=== PATIENT | female | born 1985 | race Caucasian/White ===

== ENCOUNTER 2019-10-16 09:37 | Emergency (ER) | payer BC ==
[~2019-10-16] VITALS: Ht 157.5 cm; Wt 140.0 kg
[~2019-10-16 09:37] MED LIST: BENTYL 10MG10 MG/CAP; CYMBALTA 30MG30 MG PO; EFFEXOR-XR150 MG PO; ELIQUIS 5MG PO; GEODON80 MG PO; INDERAL 20MG20 MG PO; KLONOPIN 1MG1 MG PO; LASIX 40MG TABL40 MG PO; LORTAB 5/500 501 TAB PO; LYRICA 75MG CAP75 MG PO; MICARDIS HCT 121 TAB PO; NORCO 325 MG-51 TAB PO; PAXIL 20MG20 MG PO; TRILEPTAL 300M300 MG PO; ZOFRAN 4MG T4 MG/TAB PO
[2019-10-16 09:46] VITALS: TEMP 97.7
[2019-10-16 10:53] LABS: COLLECTION METHOD CLEAN CATCH
[2019-10-16 10:59] LABS: BASO % 0.2 % (0.0-2.0); EOS % 0.1 % (0-4.0); GRAN # 8.7 (1.4-6.5); GRAN % 79.2 % (42.2-75.2); HEMOGLOBIN 11.5 g/dl (12.5-16.0); LYMPH # 1.4 (1.2-3.4); LYMPH % 12.5 % (20.0-51.0); MEAN CELL VOLUME 86 fl (80.0-100.0); MEAN CORPUSCULAR HEMOGLOBIN 27 pg (27.0-31.0); MEAN CORPUSCULAR HGB CONC 32 g/dl (33.0-37.0); MEAN PLATELET VOLUME 12.1 fl (7.4-10.4); MONO # 0.8 (0.1-0.6); MONO % 7.5 % (1.7-9.3); PLATELET COUNT 233 K/mm3 (130-400); RED BLOOD COUNT 4.22 M/mm3 (4.10-5.30); REDCELL DISTRIBUTION WIDTH-CV 13.6 % (11.5-14.5)
[2019-10-16 11:02] LABS: MUCOUS Present /lpf; PH 6 (5-8); URINE APPEARANCE Clear; URINE BACTERIA Rare /hpf; URINE BILIRUBIN Negative (NEGATIVE); URINE BLOOD Negative (NEGATIVE); URINE COLOR Yellow; URINE GLUCOSE Negative (NEGATIVE); URINE KETONE Negative (NEGATIVE); URINE LEUKOCYTE ESTERASE Negative (NEGATIVE); URINE NITRATE Negative (NEGATIVE); URINE PROTEIN(semi-quant) Negative (NEGATIVE); URINE RBC 0-2 /hpf; URINE UROBILINOGEN Negative (NEGATIVE)
[2019-10-16 11:05] LABS: HEMATOCRIT 36.1 % (37.0-47.0)
[2019-10-16 11:13] LABS: ALBUMIN 3.7 gm/dL (3.5-5.0); BILIRUBIN,TOTAL 0.3 mg/dL (0.0-1.0); C-REACTIVE PROTEIN 0.8 mg/dL (0.0-0.9); CALCIUM 8.9 mg/dL (8.4-10.2); CREATININE, serum 0.61 (0.52-1.25); POTASSIUM 3.8 mmol/L (3.4-5.0); TOTAL PROTEIN 6.7 gm/dL (6.4-8.2)
[2019-10-16] MEDS ORDERED: CEPHALEXIN500 M1 PO (13:30)
[2019-10-16] MEDS ORDERED: ANTIVERT 25MG25 MG PO (15:04)
[2019-10-16 17:07] VITALS: BP 140/100; PULSE 70
== END 2019-10-16 17:11 | disposition home or self-care (01) ==
LOC: COL.ER 09:37
PROVIDERS: Physician Assistant
DX: R60.0 Localized edema (principal); N39.0 Urinary tract infection, site not specified; R06.02 Shortness of breath; J45.909 Unspecified asthma, uncomplicated; I10 Essential (primary) hypertension; F31.9 Bipolar disorder, unspecified; F17.210 Nicotine dependence, cigarettes, uncomplicated; Z88.0 Allergy status to penicillin; Z86.718 Personal history of other venous thrombosis and embolism; Z79.01 Long term (current) use of anticoagulants
CPT/HCPCS: J1940; J2405

== ENCOUNTER 2019-11-20 08:23 | Day surgery (SDC) | payer BC ==
[~2019-11-20] VITALS: Ht 157.5 cm; Wt 135.5 kg
[2019-11-20] VITALS (9 sets, daily range): BP systolic 121–139; BP diastolic 60–94; PULSE 78–94; TEMP 98.1
[~2019-11-20 08:23] MED LIST changes: +ANTIVERT 25MG25 MG PO; +CEPHALEXIN500 M1 PO
[2019-11-20] MEDS ORDERED: THERA-D 40004000 IU PO (09:00)
[2019-11-20] MEDS ORDERED: GLUCOPHAGE500 MG/TAB PO (09:01)
[2019-11-20] MEDS ORDERED: PERCOCET 325 MG1 TA3 PO (09:03)
[2019-11-20 09:26] LABS: HEMATOCRIT 38.1 % (37.0-47.0); HEMOGLOBIN 12.1 g/dl (12.5-16.0); MEAN CELL VOLUME 84 fl (80.0-100.0); MEAN CORPUSCULAR HEMOGLOBIN 27 pg (27.0-31.0); MEAN CORPUSCULAR HGB CONC 32 g/dl (33.0-37.0); MEAN PLATELET VOLUME 11.2 fl (7.4-10.4); PLATELET COUNT 271 K/mm3 (130-400); RED BLOOD COUNT 4.53 M/mm3 (4.10-5.30); REDCELL DISTRIBUTION WIDTH-CV 13.5 % (11.5-14.5)
[2019-11-20 09:34] LABS: CALCIUM 8.7 mg/dL (8.4-10.2); CREATININE, serum 0.69 (0.52-1.25); POTASSIUM 4.4 mmol/L (3.4-5.0); PROTHROMBIN TIME 11.7 SECONDS (9.7-12.8)
--- NOTE | 2019-11-20 10:06 | NUR ---
SEE MERGE DOCUMENTATION FOR MEDICATION ADMINISTRATION AND INTRA/POST PROCEDURE SEDATION ASSESSMENTS.
--- NOTE | 2019-11-20 10:50 | NUR ---
Report from Juli DAMON. Pt up to bathroom with steady gait. Right IJ dressing CD&I and soft to palpation. VS at baseline.
--- NOTE | 2019-11-20 12:50 | NUR ---
INt discontinued intact. Discharge instructions given. transferred to private car by maria g
== END 2019-11-20 13:00 | disposition home or self-care (01) ==
LOC: COL.CAR 08:23
PROVIDERS: Internal Medicine Cardiovascular Disease
DX: I27.20 Pulmonary hypertension, unspecified (principal); I10 Essential (primary) hypertension; I20.8 Other forms of angina pectoris; Z79.01 Long term (current) use of anticoagulants; Z79.84 Long term (current) use of oral hypoglycemic drugs; Z86.718 Personal history of other venous thrombosis and embolism; Z88.0 Allergy status to penicillin; Z88.8 Allergy status to other drugs, medicaments and biological substances; Z88.6 Allergy status to analgesic agent
CPT/HCPCS: C1894; J1644; J2250; J2405; J3010

== ENCOUNTER → 2020-01-21 | Outpatient (CLI) | payer BC ==
[~2020-01-21] MED LIST changes: +GLUCOPHAGE500 MG/TAB PO; +PERCOCET 325 MG1 TA3 PO; +THERA-D 40004000 IU PO
== END ==
LOC: COL.RAD 12:03
DX: I27.20 Pulmonary hypertension, unspecified (principal)
CPT/HCPCS: A9540; A9567

== ENCOUNTER 2020-02-13 09:58 | Emergency (ER) | payer BC ==
[~2020-02-13] VITALS: Ht 157.5 cm; Wt 130.5 kg
[2020-02-13 10:03] VITALS: TEMP 98.6
[2020-02-13] MEDS ORDERED: MINIPRESS2 MG (10:16)
[2020-02-13] MEDS ORDERED: NURTEC ODT75 MG PO (10:16)
[2020-02-13] MEDS ORDERED: AMBIEN 10MG10 MG PO (10:17)
[2020-02-13] MEDS ORDERED: COZAAR 25MG25 MG/TAB PO (10:22)
[2020-02-13 11:14] LABS: BASO % 0.4 % (0.0-2.0); EOS # 0.1 (0.0-0.7); EOS % 0.6 % (0-4.0); GRAN # 5.9 (1.4-6.5); GRAN % 71.5 % (42.2-75.2); HEMATOCRIT 39.7 % (37.0-47.0); HEMOGLOBIN 12.5 g/dl (12.5-16.0); LYMPH # 1.7 (1.2-3.4); LYMPH % 20.8 % (20.0-51.0); MEAN CELL VOLUME 81 fl (80.0-100.0); MEAN CORPUSCULAR HEMOGLOBIN 26 pg (27.0-31.0); MEAN CORPUSCULAR HGB CONC 32 g/dl (33.0-37.0); MEAN PLATELET VOLUME 12.3 fl (7.4-10.4); MONO # 0.5 (0.1-0.6); MONO % 6.5 % (1.7-9.3); PLATELET COUNT 289 K/mm3 (130-400); RED BLOOD COUNT 4.91 M/mm3 (4.10-5.30)
[2020-02-13 11:26] LABS: ALBUMIN 4.2 gm/dL (3.5-5.0); BILIRUBIN,TOTAL 0.5 mg/dL (0.0-1.0); C-REACTIVE PROTEIN 1.9 mg/dL (0.0-0.9); CREATININE, serum 0.71 (0.52-1.25); POTASSIUM 3.2 mmol/L (3.4-5.0); TOTAL PROTEIN 7.2 gm/dL (6.4-8.2)
[2020-02-13 12:40] LABS: COLLECTION METHOD CLEAN CATCH
[2020-02-13 12:45] LABS: INR 1.1 (0.8-3.0); PROTHROMBIN TIME 12.4 SECONDS (9.7-12.8)
[2020-02-13 13:04] LABS: ACETAMINOPHEN < 10 ug/mL (10-30); ALCOHOL(ethanol),MEDICAL < 10 mg/dL; SALICYLATE < 1.0 mg/dL
[2020-02-13 13:21] LABS: PH 9 (5-8); URINE APPEARANCE Hazy; URINE BACTERIA Rare /hpf; URINE BILIRUBIN Negative (NEGATIVE); URINE BLOOD Negative (NEGATIVE); URINE COLOR Yellow; URINE GLUCOSE Negative (NEGATIVE); URINE KETONE Trace (NEGATIVE); URINE LEUKOCYTE ESTERASE Negative (NEGATIVE); URINE NITRATE Positive (NEGATIVE); URINE PROTEIN(semi-quant) Negative (NEGATIVE); URINE RBC 0-2 /hpf; URINE UROBILINOGEN Negative (NEGATIVE)
[2020-02-13 13:26] LABS: TRICYCLIC ANTIDEPRESS URINE NEGATIVE
[2020-02-13 17:20] VITALS: BP 136/83; PULSE 84
== END 2020-02-13 17:30 | disposition home or self-care (01) ==
LOC: COL.ER 09:58
PROVIDERS: Emergency Medicine
DX: R42 Dizziness and giddiness (principal); I10 Essential (primary) hypertension; R53.83 Other fatigue; Z88.0 Allergy status to penicillin; Z88.6 Allergy status to analgesic agent; Z79.01 Long term (current) use of anticoagulants; Z79.84 Long term (current) use of oral hypoglycemic drugs
CPT/HCPCS: J1100; J1630; J2060; J7030

== ENCOUNTER 2020-02-15 10:16 | Emergency (ER) | payer BC ==
[~2020-02-15] VITALS: Ht 157.5 cm; Wt 130.5 kg
[~2020-02-15 10:16] MED LIST changes: +AMBIEN 10MG10 MG PO; +COZAAR 25MG25 MG/TAB PO; +MINIPRESS2 MG; +NURTEC ODT75 MG PO
[2020-02-15 10:31] LABS: COLLECTION METHOD CLEAN CATCH
[2020-02-15 10:45] LABS: MUCOUS Present /lpf; PH 5 (5-8); URINE APPEARANCE Hazy; URINE BACTERIA Rare /hpf; URINE BILIRUBIN Negative (NEGATIVE); URINE BLOOD 1+ (NEGATIVE); URINE COLOR Straw; URINE GLUCOSE Negative (NEGATIVE); URINE KETONE Negative (NEGATIVE); URINE LEUKOCYTE ESTERASE 2+ (NEGATIVE); URINE NITRATE Negative (NEGATIVE); URINE PROTEIN(semi-quant) Negative (NEGATIVE); URINE UROBILINOGEN Negative (NEGATIVE)
[2020-02-15] MEDS ORDERED: CEPHALEXIN500 M1 PO (11:11)
[2020-02-15] MEDS ORDERED: PYRIDIUM200 M1 PO (11:11)
[2020-02-15 11:17] VITALS: BP 120/88; PULSE 89; TEMP 97.6
[2020-02-16] MEDS ORDERED: OMNICEF 300MG300 MG PO (20:55)
== END 2020-02-15 11:19 | disposition home or self-care (01) ==
LOC: COL.ER 10:16
PROVIDERS: Physician Assistant
DX: N39.0 Urinary tract infection, site not specified (principal); I10 Essential (primary) hypertension; Z88.0 Allergy status to penicillin; Z88.6 Allergy status to analgesic agent; Z79.01 Long term (current) use of anticoagulants; Z79.84 Long term (current) use of oral hypoglycemic drugs

== ENCOUNTER 2020-02-16 18:37 | Emergency (ER) | payer BC ==
[~2020-02-16] VITALS: Ht 157.5 cm; Wt 130.5 kg
[~2020-02-16 18:37] MED LIST changes: +PYRIDIUM200 M1 PO
[2020-02-16 18:51] VITALS: TEMP 98.1
[2020-02-16 19:25] LABS: BASO # 0.1 (0.0-0.2); BASO % 0.5 % (0.0-2.0); EOS # 0.1 (0.0-0.7); GRAN # 8.3 (1.4-6.5); GRAN % 70.4 % (42.2-75.2); HEMATOCRIT 37.8 % (37.0-47.0); LYMPH # 2.2 (1.2-3.4); MEAN CELL VOLUME 81 fl (80.0-100.0); MEAN CORPUSCULAR HEMOGLOBIN 26 pg (27.0-31.0); MEAN CORPUSCULAR HGB CONC 32 g/dl (33.0-37.0); MEAN PLATELET VOLUME 12.2 fl (7.4-10.4); MONO % 8.8 % (1.7-9.3); PLATELET COUNT 317 K/mm3 (130-400); RED BLOOD COUNT 4.67 M/mm3 (4.10-5.30); REDCELL DISTRIBUTION WIDTH-CV 15.2 % (11.5-14.5)
[2020-02-16 19:31] LABS: COLLECTION METHOD CLEAN CATCH
[2020-02-16 19:36] LABS: ALANINE AMINOTRANSFERASE 21 U/L (4-34); ALBUMIN 4.1 gm/dL (3.5-5.0); ALKALINE PHOSPHATASE 88 U/L (50-136); ANION GAP 9 mmol/L (7-16); AST,SGOT 21 U/L (15-37); BILIRUBIN,TOTAL 0.4 mg/dL (0.0-1.0); BLOOD UREA NITROGEN 17 mg/dL (7-17); C-REACTIVE PROTEIN 1.1 mg/dL (0.0-0.9); CALCIUM 8.7 mg/dL (8.4-10.2); CARBON DIOXIDE 29 mmol/L (22-30); CHLORIDE 97 mmol/L (98-107); GLUCOSE 98 mg/dL (74-106); POTASSIUM 3.6 mmol/L (3.4-5.0); SODIUM 135 mmol/L (137-145)
[2020-02-16 19:47] LABS: TROPONIN-I < 0.012 ng/mL (0.000-0.035)
[2020-02-16 19:49] LABS: MUCOUS Present /lpf; PH 5 (5-8); SQUAMOUS EPITHELIAL >50 /hpf; URINE APPEARANCE Turbid; URINE BACTERIA Occasional /hpf; URINE BILIRUBIN Negative (NEGATIVE); URINE BLOOD Negative (NEGATIVE); URINE COLOR Amber; URINE GLUCOSE Negative (NEGATIVE); URINE KETONE Negative (NEGATIVE); URINE LEUKOCYTE ESTERASE 2+ (NEGATIVE); URINE NITRATE Negative (NEGATIVE); URINE PROTEIN(semi-quant) 1+ (NEGATIVE)
[2020-02-16] MEDS ORDERED: OMNICEF 300MG300 MG PO (20:55)
[2020-02-16 21:05] VITALS: BP 121/61; PULSE 81
== END 2020-02-16 21:16 | disposition home or self-care (01) ==
LOC: COL.ER 18:37
PROVIDERS: Emergency Medicine
DX: R06.02 Shortness of breath (principal); N39.0 Urinary tract infection, site not specified; R51.9 Headache, unspecified; R07.89 Other chest pain; Z20.828 Contact with and (suspected) exposure to other viral communicable diseases; Z86.718 Personal history of other venous thrombosis and embolism; Z79.01 Long term (current) use of anticoagulants; Z88.0 Allergy status to penicillin; Z79.84 Long term (current) use of oral hypoglycemic drugs
CPT/HCPCS: J0696; J7030

== ENCOUNTER 2020-05-12 19:01 | Emergency (ER) | payer BC ==
[~2020-05-12] VITALS: Ht 157.5 cm; Wt 125.5 kg
[~2020-05-12 19:01] MED LIST changes: +OMNICEF 300MG300 MG PO
[2020-05-12 19:34] LABS: COLLECTION METHOD CLEAN CATCH
[2020-05-12 19:42] LABS: MUCOUS Present /lpf; PH 6 (5-8); URINE APPEARANCE Hazy; URINE BACTERIA Rare /hpf; URINE BILIRUBIN Negative (NEGATIVE); URINE BLOOD Negative (NEGATIVE); URINE COLOR Yellow; URINE GLUCOSE Negative (NEGATIVE); URINE KETONE 1+ (NEGATIVE); URINE LEUKOCYTE ESTERASE Negative (NEGATIVE); URINE NITRATE Negative (NEGATIVE); URINE PROTEIN(semi-quant) Negative (NEGATIVE); URINE RBC 0-2 /hpf; URINE UROBILINOGEN Negative (NEGATIVE)
[2020-05-12 19:55] LABS: TRICYCLIC ANTIDEPRESS URINE POSITIVE
[2020-05-12 21:11] LABS: BASO % 0.2 % (0.0-2.0); GRAN # 7.3 (1.4-6.5); HEMATOCRIT 38.3 % (37.0-47.0); LYMPH # 0.6 (1.2-3.4); MEAN CELL VOLUME 81 fl (80.0-100.0); MEAN CORPUSCULAR HEMOGLOBIN 25 pg (27.0-31.0); MEAN CORPUSCULAR HGB CONC 31 g/dl (33.0-37.0); MEAN PLATELET VOLUME 12.2 fl (7.4-10.4); MONO # 0.2 (0.1-0.6); MONO % 2.8 % (1.7-9.3); PLATELET COUNT 297 K/mm3 (130-400); RED BLOOD COUNT 4.76 M/mm3 (4.10-5.30); REDCELL DISTRIBUTION WIDTH-CV 14.2 % (11.5-14.5)
[2020-05-12 21:25] LABS: ACETAMINOPHEN < 10 ug/mL (10-30); ALANINE AMINOTRANSFERASE 19 U/L (4-34); ALBUMIN 4.4 gm/dL (3.5-5.0); ALCOHOL(ethanol),MEDICAL < 10 mg/dL; ALKALINE PHOSPHATASE 121 U/L (50-136); ANION GAP 11 mmol/L (7-16); AST,SGOT 24 U/L (15-37); BILIRUBIN,TOTAL 0.4 mg/dL (0.0-1.0); BLOOD UREA NITROGEN 5 mg/dL (7-17); CALCIUM 9.3 mg/dL (8.4-10.2); CARBON DIOXIDE 26 mmol/L (22-30); CHLORIDE 104 mmol/L (98-107); CREATININE, serum 0.72 (0.52-1.25); GLUCOSE 138 mg/dL (74-106); POTASSIUM 3.9 mmol/L (3.4-5.0); SALICYLATE < 1.0 mg/dL; SODIUM 141 mmol/L (137-145); TOTAL PROTEIN 7.6 gm/dL (6.4-8.2)
[2020-05-12 21:32] LABS: INR 1.1 (0.8-3.0); PROTHROMBIN TIME 12.3 SECONDS (9.7-12.8)
[2020-05-13 07:22] VITALS: TEMP 97.4
[2020-05-13] MEDS ORDERED: SEROQUEL XR300 MG PO (09:30)
[2020-05-13] MEDS ORDERED: VALIUM 10MG10 MG/TAB PO (09:31)
[2020-05-13] MEDS ORDERED: ZANAFLEX 4MG TAB4 MG PO (09:32)
[2020-05-13 12:45] VITALS: BP 129/48; PULSE 132
== END 2020-05-13 13:15 ==
LOC: COL.ER 19:01
PROVIDERS: Nurse Practitioner
DX: F32.9 Major depressive disorder, single episode, unspecified (principal); F41.9 Anxiety disorder, unspecified; F17.200 Nicotine dependence, unspecified, uncomplicated; Z20.822 Contact with and (suspected) exposure to COVID-19; Z98.84 Bariatric surgery status; Z90.49 Acquired absence of other specified parts of digestive tract; Z32.02 Encounter for pregnancy test, result negative; Z88.0 Allergy status to penicillin; Z88.6 Allergy status to analgesic agent; Z79.01 Long term (current) use of anticoagulants; Z79.84 Long term (current) use of oral hypoglycemic drugs
CPT/HCPCS: J1200; J1885; J2765

== ENCOUNTER 2020-09-28 12:25 | Observation (INO) | payer OTHER ==
[~2020-09-28 12:25] MED LIST changes: +SEROQUEL XR300 MG PO; +VALIUM 10MG10 MG/TAB PO; +ZANAFLEX 4MG TAB4 MG PO
[2020-09-28 15:21] VITALS: BP 143/62; PULSE 101; TEMP 98.4
[2020-09-28] MEDS ORDERED: COZAAR 50MG50 MG/TAB PO (16:47)
[2020-09-28] MEDS ORDERED: HALDOL 2MG T2 MG/TAB PO (16:51)
[2020-09-28 20:36] VITALS: BP 141/74; PULSE 105; TEMP 97.9
[2020-09-28] MEDS ORDERED: AMBIEN 10MG10 MG PO (21:13)
--- NOTE | 2020-09-28 22:38 | NUR ---
Upon shift start, patient sitting up in bed. Patient feeling anxious and c/o SOB. Breathing tachypnic and slightly labored. SPO2 94-96% on RA. Started oxygen 2L via NC. Called RT for breathing treatment. SPO2 99% on 2L via NC. After breathing treatment, patient reports feeling much better. All scheduled meds given per JUN. PRN Ambien, diazepam and Tizanidine given per patient request. Call light within reach. Will continue to monitor.
[2020-09-28 23:42] VITALS: BP 100/64; PULSE 88; TEMP 98
--- NOTE | 2020-09-29 04:55 | NUR ---
Patient used call light to call the nurse around 04:20 am. Upon enter the room, noticed patient was laying in bed almost flat. Patient reports having SOB and wheezing. HOB elevated and ssisted patient to sit up straight in bed. Patient currently on 2L via NC. SPO2 99% on 2L via NC at this time. Breathing was slightly labored. Expiratory wheezing noted. BUE and BLE +2 pitting edema noted. Called RT and get breathing TX. Called TRI Jose and updated. TRI Jose came to assess the patient. Order recieved to give Lasix IV one time dose. Patient reports feeling much better after breathing TX. SPO2 100% on 2L via NC. Call light within reach. Will continue to monitor.
[2020-09-29 05:07] VITALS: BP 120/59; PULSE 93; TEMP 97.4
[2020-09-29 06:08] LABS: BASO % 0.7 % (0.0-2.0); EOS # 0.1 (0.0-0.7); GRAN # 3.3 (1.4-6.5); GRAN % 53.2 % (42.2-75.2); LYMPH # 2.1 (1.2-3.4); LYMPH % 33.8 % (20.0-51.0); MEAN CELL VOLUME 77 fl (80.0-100.0); MEAN CORPUSCULAR HGB CONC 31 g/dl (33.0-37.0); MEAN PLATELET VOLUME 10.9 fl (7.4-10.4); MONO # 0.6 (0.1-0.6); MONO % 10.1 % (1.7-9.3); PLATELET COUNT 293 K/mm3 (130-400); RED BLOOD COUNT 4.19 M/mm3 (4.10-5.30); REDCELL DISTRIBUTION WIDTH-CV 16.9 % (11.5-14.5)
[2020-09-29 06:15] LABS: HEMATOCRIT 32.1 % (37.0-47.0); HEMOGLOBIN 9.8 g/dl (12.5-16.0); MEAN CORPUSCULAR HEMOGLOBIN 23 pg (27.0-31.0)
[2020-09-29 06:21] LABS: ANION GAP 10 mmol/L (7-16); BLOOD UREA NITROGEN 10 mg/dL (7-17); CALCIUM 8.2 mg/dL (8.4-10.2); CARBON DIOXIDE 27 mmol/L (22-30); CHLORIDE 103 mmol/L (98-107); CREATININE, serum 0.81 (0.52-1.25); GLUCOSE 102 mg/dL (74-106); SODIUM 139 mmol/L (137-145)
[2020-09-29 06:32] LABS: TROPONIN-I < 0.012 ng/mL (0.000-0.035)
[2020-09-29 06:40] LABS: MAGNESIUM 1.6 mg/dL (1.6-2.3)
[2020-09-29 07:30] VITALS: BP 112/62; PULSE 89; TEMP 98
--- NOTE | 2020-09-29 08:52 | NUR ---
Pt awake and alert upon entry to room, sitting in the recliner, no C/O pain at this time. +2 edema BLE. Shift assessments complete, left Pt call light in reach, bed in lowest position.
--- NOTE | 2020-09-29 10:02 | NUR ---
Digital Campaign Manager attended clinical rounds with the team and patient to discharge home today. SW met with patient to discuss discharge plan. Patient lives in [place] with her 11 year old daughter, Marium. Patient reports that her mother, Vicki (ph#[phone]) is currently watching Marium. 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 Patient sees Jennifer Naylor PA-C for primary care and obtains medications from [facility]. Patient uses home oxygen through [facility] and is independent with ADLS. Patient does not have Advance Directives and is not interested in completing DPOA-HC at this time. Discharge Plan: Home
[2020-09-29 11:06] VITALS: BP 124/70; PULSE 94; TEMP 98.1
--- NOTE | 2020-09-29 11:45 | NUR ---
Pt discharged to home, discussed discharge packet with Pt. Pt escorted to entrance by PCT, Pt left with family via private transportation.
--- NOTE | 2020-09-29 11:51 | NUR ---
Pt discharged to home, discussed discharge packet with Pt. Pt escorted to entrance by PCT, Pt left with family via private transportation.
== END 2020-09-29 11:30 | disposition home or self-care (01) ==
LOC: MEDICAL 12:25
PROVIDERS: ADMIT Internal Medicine
DX: R07.89 Other chest pain (principal); R06.00 Dyspnea, unspecified; I27.20 Pulmonary hypertension, unspecified; G43.909 Migraine, unspecified, not intractable, without status migrainosus; R06.89 Other abnormalities of breathing; M32.9 Systemic lupus erythematosus, unspecified; I10 Essential (primary) hypertension; E03.9 Hypothyroidism, unspecified; M79.7 Fibromyalgia; E28.2 Polycystic ovarian syndrome; F31.9 Bipolar disorder, unspecified; F41.9 Anxiety disorder, unspecified; F17.290 Nicotine dependence, other tobacco product, uncomplicated; Z86.718 Personal history of other venous thrombosis and embolism; Z90.49 Acquired absence of other specified parts of digestive tract; Z79.899 Other long term (current) drug therapy; Z79.84 Long term (current) use of oral hypoglycemic drugs; Z98.84 Bariatric surgery status
CPT/HCPCS: G0378; J1940

== ENCOUNTER 2020-10-29 09:18 | Emergency (ER) | payer OTHER ==
[~2020-10-29] VITALS: Ht 154.9 cm; Wt 127.3 kg
[~2020-10-29 09:18] MED LIST changes: +COZAAR 50MG50 MG/TAB PO; +HALDOL 2MG T2 MG/TAB PO
[2020-10-29 10:07] VITALS: TEMP 97.9
[2020-10-29 11:05] LABS: COLLECTION METHOD CLEAN CATCH
[2020-10-29 11:21] LABS: MUCOUS Present /lpf; PH 5 (5-8); URINE APPEARANCE Hazy; URINE BACTERIA Rare /hpf; URINE BILIRUBIN Negative (NEGATIVE); URINE BLOOD Negative (NEGATIVE); URINE COLOR Yellow; URINE GLUCOSE Negative (NEGATIVE); URINE KETONE Negative (NEGATIVE); URINE LEUKOCYTE ESTERASE Negative (NEGATIVE); URINE NITRATE Negative (NEGATIVE); URINE PROTEIN(semi-quant) Negative (NEGATIVE); URINE RBC 0-2 /hpf; URINE UROBILINOGEN Negative (NEGATIVE)
[2020-10-29] MEDS ORDERED: BUSPAR5 MG PO (11:30)
[2020-10-29] MEDS ORDERED: XARELTO20 MG PO (11:31)
[2020-10-29 11:45] LABS: ALANINE AMINOTRANSFERASE 53 U/L (4-34); ALKALINE PHOSPHATASE 159 U/L (50-136); ANION GAP 7 mmol/L (7-16); AST,SGOT 31 U/L (15-37); BILIRUBIN,TOTAL 0.2 mg/dL (0.0-1.0); BLOOD UREA NITROGEN 12 mg/dL (7-17); CALCIUM 9.1 mg/dL (8.4-10.2); CARBON DIOXIDE 27 mmol/L (22-30); CHLORIDE 107 mmol/L (98-107); CREATININE, serum 0.87 (0.52-1.25); GLUCOSE 100 mg/dL (74-106); POTASSIUM 4.4 mmol/L (3.4-5.0); SODIUM 140 mmol/L (137-145); TOTAL PROTEIN 7.1 gm/dL (6.4-8.2)
[2020-10-29 11:56] LABS: TROPONIN-I < 0.012 ng/mL (0.000-0.035)
[2020-10-29 12:06] LABS: BASO # 0.1 (0.0-0.2); BASO % 0.5 % (0.0-2.0); EOS # 0.1 (0.0-0.7); EOS % 0.9 % (0-4.0); GRAN # 6.8 (1.4-6.5); GRAN % 68.4 % (42.2-75.2); LYMPH % 20.5 % (20.0-51.0); MEAN CELL VOLUME 77 fl (80.0-100.0); MEAN CORPUSCULAR HGB CONC 30 g/dl (33.0-37.0); MEAN PLATELET VOLUME 11.9 fl (7.4-10.4); MONO # 0.9 (0.1-0.6); MONO % 9.4 % (1.7-9.3); PLATELET COUNT 371 K/mm3 (130-400); RED BLOOD COUNT 4.25 M/mm3 (4.10-5.30); REDCELL DISTRIBUTION WIDTH-CV 16.3 % (11.5-14.5)
[2020-10-29 12:08] LABS: HEMATOCRIT 32.7 % (37.0-47.0); HEMOGLOBIN 9.9 g/dl (12.5-16.0); MEAN CORPUSCULAR HEMOGLOBIN 23 pg (27.0-31.0)
[2020-10-29 12:40] VITALS: BP 105/55; PULSE 55
== END 2020-10-29 12:42 | disposition home or self-care (01) ==
LOC: COL.ER 09:18
PROVIDERS: Physician Assistant
DX: M32.9 Systemic lupus erythematosus, unspecified (principal); R06.02 Shortness of breath; F31.9 Bipolar disorder, unspecified; I11.0 Hypertensive heart disease with heart failure; I50.9 Heart failure, unspecified; Z86.718 Personal history of other venous thrombosis and embolism; Z79.899 Other long term (current) drug therapy; Z79.01 Long term (current) use of anticoagulants

== ENCOUNTER 2021-03-16 13:53 | Emergency (ER) | payer OTHER ==
[~2021-03-16] VITALS: Ht 154.9 cm; Wt 135.9 kg
[~2021-03-16 13:53] MED LIST changes: +BUSPAR5 MG PO; +XARELTO20 MG PO
[2021-03-16 14:16] VITALS: TEMP 98.3
[2021-03-16 16:15] LABS: BASO # 0.1 K/mm3 (0.0-0.2); BASO % 0.5 % (0.0-2.0); EOS # 0.2 K/mm3 (0.0-0.7); EOS % 1.5 % (0-4.0); GRAN # 7.7 K/mm3 (1.4-6.5); HEMATOCRIT 37.3 % (37.0-47.0); HEMOGLOBIN 12.1 g/dl (12.5-16.0); LYMPH # 1.9 K/mm3 (1.2-3.4); LYMPH % 18.3 % (20.0-51.0); MEAN CELL VOLUME 85 fl (80.0-100.0); MEAN CORPUSCULAR HEMOGLOBIN 28 pg (27.0-31.0); MEAN CORPUSCULAR HGB CONC 32 g/dl (33.0-37.0); MEAN PLATELET VOLUME 10.8 fl (7.4-10.4); MONO # 0.7 K/mm3 (0.1-0.6); MONO % 6.3 % (1.7-9.3); PLATELET COUNT 312 K/mm3 (130-400); RED BLOOD COUNT 4.37 M/mm3 (4.10-5.30); REDCELL DISTRIBUTION WIDTH-CV 14.6 % (11.5-14.5)
[2021-03-16 16:33] LABS: COLLECTION METHOD CLEAN CATCH
[2021-03-16 16:34] LABS: ALBUMIN 3.7 gm/dL (3.5-5.0); BILIRUBIN,TOTAL 0.2 mg/dL (0.2-1.2); C-REACTIVE PROTEIN 0.45 mg/dL (0.00-0.50); CALCIUM 8.2 mg/dL (8.4-10.2); CREATININE, serum 0.79 mg/dL (0.57-1.11); POTASSIUM 4.2 mmol/L (3.5-4.5); TOTAL PROTEIN 6.8 gm/dL (6.2-8.1)
[2021-03-16 16:43] LABS: AMORPHOUS CRYSTAL Present (NOT PRESENT); MUCOUS Present (NOT PRESENT); PH 5 (5-8); URINE APPEARANCE Cloudy (CLEAR/HAZY); URINE BACTERIA Rare (NONE SEEN); URINE BILIRUBIN Negative (NEGATIVE); URINE BLOOD Negative (NEGATIVE); URINE COLOR Yellow (YELLOW); URINE GLUCOSE Negative (NEGATIVE); URINE KETONE Negative (NEGATIVE); URINE LEUKOCYTE ESTERASE 1+ (NEGATIVE); URINE NITRATE Negative (NEGATIVE); URINE PROTEIN(semi-quant) Negative (NEGATIVE); URINE UROBILINOGEN Negative (NEGATIVE)
[2021-03-16 17:14] LABS: TROPONIN-I < 0.010 ng/mL (0.00-0.033); TSH w REFLEX 1.431 uIU/mL (0.350-4.940)
[2021-03-16 20:12] VITALS: BP 170/105; PULSE 102
== END 2021-03-16 20:21 | disposition home or self-care (01) ==
LOC: COL.ER 13:53
PROVIDERS: Nurse Practitioner Primary Care
DX: I11.0 Hypertensive heart disease with heart failure (principal); I50.9 Heart failure, unspecified; M32.9 Systemic lupus erythematosus, unspecified; Z79.899 Other long term (current) drug therapy
CPT/HCPCS: J0360; J7030